=== PATIENT | female | born 1985 | race African-American/Black ===

== ENCOUNTER 2016-09-27 14:06 | Emergency (ER) ==
[2016-09-27 14:20] VITALS: BP 138/81
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
== END 2016-09-27 14:54 | disposition home or self-care (01) ==
LOC: P.ED 14:06
DX: M62.830 Muscle spasm of back (principal); M54.9 Dorsalgia, unspecified
CPT/HCPCS: 99281